=== PATIENT | female | born 1985 | race Caucasian/White ===

== ENCOUNTER → 2021-08-26 | Outpatient (CLI) | payer OTHER | LOC: LAB 13:16 | PROVIDERS: ATTEND Internal Medicine Cardiovascular Disease | DX: R51.9 Headache, unspecified (principal); R19.7 Diarrhea, unspecified; R11.2 Nausea with vomiting, unspecified; Z20.822 Contact with and (suspected) exposure to COVID-19 | CPT/HCPCS: U0003 ==

== ENCOUNTER 2021-09-05 06:13 | Emergency (ER) | payer OTHER ==
[~2021-09-05] VITALS: Ht 154.9 cm; Wt 76.0 kg
[2021-09-05 06:23] VITALS: BP 140/84
--- NOTE | 2021-09-05 06:26 | PHYS DOC ---
Adult General Chief Complaint Chief Complaint: BACK PAIN - NO INJURY HPI HPI Patient is a 36-year-old female presenting for multiple issues. Reports she went to her [facility] for routine care August 21 and reported dysuria. Initial UA was unremarkable but culture was reviewed later and showed Klebsiella pneumonia UTI and based on sensitivities patient was started on Bactrim. States she finished the Bactrim today but yesterday, developed a generalized morbilliform rash that was all over her body which concerned her prompting her to come in. Today she continues to complain of itching and irritation from rash in addition to ongoing dysuria and suprapubic and lower back pain. She attempted to call her [facility] physician for evaluation but they are closed today prompting her to come into ER for evaluation. No fever, no other reported medical issues or daily medications Review of Systems Review of Systems Fourteen body systems of review of systems have been reviewed. See HPI for pertinent positives and negative responses, other allen all other systems are negative, non-pertinent or non-contributory Physical Exam Physical Exam Constitutional: Well developed, well nourished, no acute distress, non-toxic appearance. HENT: Normocephalic, atraumatic, bilateral external ears normal, oropharynx moist, no oral exudates, nose normal. Eyes: PERRLA, EOMI, conjunctiva normal, no discharge. Neck: Normal range of motion, no tenderness, supple, no stridor. Cardiovascular: Heart rate regular, sinus rhythm, no murmurs rubs or gallops Lungs & Thorax: Bilateral breath sounds clear to auscultation Abdomen: Bowel sounds normal, soft, suprapubic tenderness to palpation, no masses, no pulsatile masses. Nonsurgical abdomen, no peritoneal signs Skin: Warm, dry, no erythema, generalized morbilliform rash present to entire body but spares oral mucosa, palms and soles Back: No tenderness, no CVA tenderness. Extremities: No tenderness, no cyanosis, no clubbing, ROM intact, no edema. Neurologic: Alert and oriented X 3, grossly normal motor & sensory function, no focal deficits noted. Psychologic: Affect normal, judgement normal, mood normal. Current Patient Data Vital Signs Vital Signs Date Time Temp Pulse Resp B/P (MAP) Pulse Ox O2 Delivery O2 Flow Rate FiO2 09/05/21 06:23 99.0 111 16 140/84 (102) 100 Room Air Vital Signs Date Time Temp Pulse Resp B/P (MAP) Pulse Ox O2 Delivery O2 Flow Rate FiO2 09/05/21 06:23 99.0 111 16 140/84 (102) 100 Room Air EKG EKG [] Radiology/Procedures Radiology/Procedures [] Heart Score C/O Chest Pain: No Risk Factors: Risk Factors: DM, Current or recent (<one month) smoker, HTN, HLP, family history of CAD, obesity. Risk Scores: Risk Factors: DM, Current or recent (<one month) smoker, HTN, HLP, family history of CAD, obesity. Course & Med Decision Making Course & Med Decision Making ABCs unremarkable HPI and physical exam nonconcerning for any emergent or surgical issues. Presentation consistent with morbilliform drug-related rash consistent with recent Bactrim use Pepcid, prednisone and Benadryl administered with improvement in symptoms. Patient finished Bactrim so ongoing avoidance recommended I reviewed patient's prior UA and culture that was positive for Klebsiella pneumonia and sensitive to Keflex, joint decision made to start this with close [facility] follow-up Jayda Disclaimer Jayda Disclaimer This electronic medical record was generated, in whole or in part, using a voice recognition dictation system. Departure Departure: Impression: Primary Impression: Adverse drug reaction Additional Impression: UTI (urinary tract infection) Disposition: HOME / SELF CARE / HOMELESS Condition: STABLE Referrals: [facility] (PCP) Additional Instructions: You were seen for a urinary tract infection. Please continue to take the antibiotics as prescribed. You were given Keflex based on prior sensitivities from your outpatient urinalysis culture. You were also seen today for classic morbilliform rash related to Bactrim use. You were given steroids, Benadryl and Pepcid for your symptoms with ongoing avoidance recommended. You should return to the ED if you develop worsening pain, fever, flank pain, or any other new or concerning symptoms. Follow up with primary care for further management if ongoing symptoms. Scripts Cephalexin (CEPHALEXIN) 500 Mg Tablet 2 TAB PO BID for UTI for 7 Days, #28 TAB Prov: FROILAN TORREZ DO 09/05/21 Problem Qualifiers FROILAN TORREZ DO Sep 05, 2021 06:26
[2021-09-05] MEDS ORDERED: PHEN37.53 PO (06:28)
[2021-09-05] MEDS ORDERED: LEVO50CA3 PO (06:28)
[2021-09-05] MEDS ORDERED: CEPH500T PO (06:46)
[2021-09-05] MEDS ORDERED: predniSONE 10 MG TABLET. PO ONE (07:00)
[2021-09-05] MEDS ORDERED: CEPHALEXIN 250 MG CAPSULE PO ONE (07:00)
[2021-09-05] MEDS ORDERED: diphenhydrAMINE 50 MG/ML VIAL IM ONE (07:00)
[2021-09-05] MEDS ORDERED: FAMOTIDINE 20 MG TABLET PO ONE (07:00)
[2021-09-05] MEDS ORDERED: diphenhydrAMINE HCL 25 MG CAPSULE PO ONE (07:00)
[2021-09-06] MEDS ORDERED: METH4TAB2 PO (14:02)
[2021-09-06] MEDS ORDERED: CETI10TA74 PO (14:02)
[2021-09-06] MEDS ORDERED: FAMO-63 PO (14:02)
[2021-09-06] MEDS ORDERED: LEVO750T5 PO (14:02)
== END 2021-09-05 06:57 | disposition home or self-care (01) ==
LOC: ER 06:13
DX: N39.0 Urinary tract infection, site not specified (principal); T50.905A Adverse effect of unspecified drugs, medicaments and biological substances, initial encounter; Y92.9 Unspecified place or not applicable
CPT/HCPCS: 99284; J7512; Q0163

== ENCOUNTER 2021-09-06 11:39 | Emergency (ER) | payer OTHER ==
[~2021-09-06] VITALS: Ht 154.9 cm; Wt 76.0 kg
[~2021-09-06 11:39] MED LIST: CEPH500T PO; LEVO50CA3 PO; PHEN37.53 PO
[2021-09-06 11:55] VITALS: BP 141/87
[2021-09-06] MEDS ORDERED: methylPREDNISolone SOD SUCC PF 125 MG/2 ML VIAL. IV ONE (12:00)
[2021-09-06] MEDS ORDERED: diphenhydrAMINE 50 MG/ML VIAL IVP ONE (12:00)
[2021-09-06] MEDS ORDERED: IV NORMAL SALINE 1,000ML 1,000 ML IV ONE (12:00)
[2021-09-06] MEDS ORDERED: FAMOTIDINE 20 MG/2 ML VIAL IVP ONE (12:00)
--- NOTE | 2021-09-06 13:07 | PHYS DOC ---
Past History Past Surgical History: Cholecystectomy, Hysterectomy Alcohol Use: None Adult General Chief Complaint Chief Complaint: SKIN PROBLEM HPI HPI The patient is a 36-year-old female who presents for re-evaluation of a generalized itchy red rash. Patient developed the rash after being started on Bactrim a few days ago by her rehabilitation services aide. She was subsequently seen here and given a dose of oral steroid, felt better and was discharged home with a course of Keflex which she has been taking. She presents for recurrent generalized itchy red rash. No nausea or vomiting, swelling of lips or face or throat or tongue, shortness of breath. Alert, oriented, pleasantly and appropriately interactive and in no acute distress with appropriate vital signs upon initial evaluation here in the emergency department, ambulatory into her ED room with a narrow, steady gait. Review of Systems Review of Systems A 12 point review of systems was completed and was negative except where noted in HPI above. Current Medications Current Medications Current Medications Medications (Trade) Dose Ordered Sig/[place] Start Time Stop Time Status Last Admin Dose Admin Diphenhydramine HCl (Benadryl) 50 mg 1X ONCE 09/06/21 12:00 09/06/21 12:01 DC 09/06/21 12:03 50 MG Famotidine (Pepcid Vial) 40 mg 1X ONCE 09/06/21 12:00 09/06/21 12:01 DC 09/06/21 12:03 40 MG Methylprednisolone Sodium Succinate (SOLU-Medrol 125MG VIAL) 125 mg 1X ONCE 09/06/21 12:00 09/06/21 12:01 DC 09/06/21 12:04 125 MG Sodium Chloride 1,000 ml @ 1,000 mls/hr 1X ONCE 09/06/21 12:00 09/06/21 12:59 DC 09/06/21 12:06 1,000 MLS/HR Allergies Allergies Allergies Coded Allergies Type Severity Reaction Last Updated Verified No Known Drug Allergies 09/05/21 No Physical Exam Physical Exam 36-year-old female appearing nontoxic and in no acute distress. Head is normocephalic and atraumatic. Neck is supple and nontender. Oropharynx is moist. Lungs are clear to auscultation at all stations. There is a normal S1 and S2 without rubs or gallops and capillary refill is appropriate, less than 2 seconds globally. Abdomen is soft, nontender and nondistended. Skin is warm and dry without cyanosis, clubbing or edema. There is a generalized itchy maculopapular red rash to arms and legs and torso and face. Psychiatrically, the patient demonstrates appropriate mood and affect and is alert. Current Patient Data Vital Signs Vital Signs Date Time Temp Pulse Resp B/P (MAP) Pulse Ox O2 Delivery O2 Flow Rate FiO2 09/06/21 11:55 97.8 96 16 141/87 (105) 99 Room Air EKG EKG [] Radiology/Procedures Radiology/Procedures [] Heart Score C/O Chest Pain: No Risk Factors: Risk Factors: DM, Current or recent (<one month) smoker, HTN, HLP, family history of CAD, obesity. Risk Scores: Risk Factors: DM, Current or recent (<one month) smoker, HTN, HLP, family history of CAD, obesity. Course & Med Decision Making Course & Med Decision Making 36-year-old female with recrudescence of likely allergic dermatitis following use of Bactrim. We will have to consider the possibility that the recurrent reaction is to Keflex, though lower suspicion. Have given a dose of IV Solu-Me drol along with Benadryl and Pepcid and rash has regressed nearly to resolution. Patient feels much better. Will send home with a Medrol Dosepak and 3 days of antihistamines along with a course of levofloxacin to complete treatment for UTI. She has had a hysterectomy. Patient understands that if she feels worse instead of better or develops other new symptoms of concern that she should return to the emergency department right away for reevaluation. All questions are answered. Dragon Disclaimer Dragon Disclaimer This electronic medical record was generated, in whole or in part, using a voice recognition dictation system. Departure Departure: Impression: Primary Impression: Rash and other nonspecific skin eruption Additional Impression: Adverse reaction to antibiotic Disposition: 01 HOME / SELF CARE / HOMELESS Condition: IMPROVED Referrals: SOFIE ORTEGA (PCP) Patient Instructions: Drug Rash Additional Instructions: Follow-up very closely with your primary care doctor in the office in the next 2 to 4 days for a reevaluation of your symptoms and a discussion of next best steps in care. Stop taking the Keflex antibiotic and begin taking the levofloxacin antibiotic; take a pill daily until the antibiotic is gone. Take the Medrol Dosepak steroids as per the instructions on the package until they are gone to prevent recurrence of your rash. Take the Zyrtec and Pepcid daily as prescribed for the next 3 days as well to prevent recurrence of your rash. Drink plenty of fluids and get plenty of rest. Return to the emergency department right away for worsening symptoms of any kind or with any other new symptoms of concern. Scripts Cetirizine Hcl (ZYRTEC) 10 Mg Tablet 1 TAB PO DAILY for rash for 3 Days, #3 TAB 2 Refills Prov: AMERICA MOODY MD 09/06/21 Famotidine (PEPCID) 20 Mg Tablet 1 TAB PO BID for rash for 3 Days, #6 TAB 3 Refills Prov: AMERICA MOODY MD 09/06/21 Methylprednisolone (MEDROL) 4 Mg Tab.ds.pk 1 PKG PO UD for rash, #1 PKG Prov: AMERICA MOODY MD 09/06/21 Levofloxacin (LEVOFLOXACIN) 750 Mg Tablet 1 TAB PO DAILY for UTI for 5 Days, #5 TAB Prov: AMERICA MOODY MD 09/06/21 Problem Qualifiers AMERICA MOODY MD Sep 06, 2021 13:07
[2021-09-06] MEDS ORDERED: METH4TAB2 PO (14:02)
[2021-09-06] MEDS ORDERED: LEVO750T5 PO (14:02)
[2021-09-06] MEDS ORDERED: FAMO-63 PO (14:02)
[2021-09-06] MEDS ORDERED: CETI10TA74 PO (14:02)
== END 2021-09-06 14:09 | disposition home or self-care (01) ==
LOC: ER 11:39
DX: L25.8 Unspecified contact dermatitis due to other agents (principal); T50.905A Adverse effect of unspecified drugs, medicaments and biological substances, initial encounter; Y92.9 Unspecified place or not applicable
CPT/HCPCS: 96361; 96374; 96375; 99284; J1200; J2930; J3490; J7030